=== PATIENT | female | born 1960 | race Asian ===

== ENCOUNTER 2017-10-17 08:58 | Emergency (ER) | payer OTHER ==
[~2017-10-17] VITALS: Ht 152.4 cm; Wt 48.5 kg
[~2017-10-17 08:58] MED LIST: HCTZ/LISINOPRIL1 TA1 PO; METFORMIN500 M1 PO; SIMVASTATIN40 M1 PO; TRAMADOL50 M1 PO
[2017-10-17 09:14] VITALS: Ht 152.4 cm; Wt 48.5 kg
[2017-10-17 15:31] LABS: BASOPHIL % 0.5 % (0-2); PLATELET COUNT 191 x10^3mcL (130-400); RED CELL DISTRIBUTION WIDTH 13.2 % (11.5-14.5)
[2017-10-17 15:33] LABS: CALCIUM 8.4 mg/dL (8.5-10.1); CARBON DIOXIDE 25.8 mmol/L (21-32); CHLORIDE SERUM 104 mmol/L (98-107); CREATININE SERUM 0.5 mg/dL (0.6-1.0); GFR1 > 60 mL/min; GLUCOSE SERUM 116 mg/dL (74-106); POTASSIUM SERUM 3.4 mmol/L (3.5-5.1); SODIUM SERUM 140 mmol/L (136-145)
[2017-10-17 15:37] LABS: ALBUMIN 3.8 g/dL (3.4-5.0); ALKALINE PHOSPHATASE 75 U/L (46-116); ALT/SGPT 19 U/L (14-59); AST/SGOT 14 U/L (15-37); BILIRUBIN TOTAL 0.31 mg/dL (0.20-1.00)
[2017-10-17 16:35] VITALS: BP 120/80
== END 2017-10-17 16:35 | disposition home or self-care (01) ==
LOC: ED 08:58
PROVIDERS: Emergency Medicine
DX: G43.909 Migraine, unspecified, not intractable, without status migrainosus (principal); B34.9 Viral infection, unspecified; I10 Essential (primary) hypertension; E11.9 Type 2 diabetes mellitus without complications; E78.00 Pure hypercholesterolemia, unspecified
CPT/HCPCS: 87804; J1200; J2765; J7030

== ENCOUNTER 2017-12-26 16:14 | Emergency (ER) | payer OTHER ==
[~2017-12-26] VITALS: Ht 154.9 cm; Wt 48.1 kg
[2017-12-26 16:16] VITALS: Ht 154.9 cm; Wt 48.1 kg
[2017-12-26 18:12] VITALS: BP 107/69
== END 2017-12-26 18:12 | disposition home or self-care (01) ==
LOC: ED 16:14
DX: T22.20XA Burn of second degree of shoulder and upper limb, except wrist and hand, unspecified site, initial encounter (principal); I10 Essential (primary) hypertension; E11.9 Type 2 diabetes mellitus without complications; E78.00 Pure hypercholesterolemia, unspecified; X08.8XXA Exposure to other specified smoke, fire and flames, initial encounter; Y93.89 Activity, other specified; Y92.89 Other specified places as the place of occurrence of the external cause; Y99.8 Other external cause status
CPT/HCPCS: 90715